=== PATIENT | female | born 1980 | race Hispanic/Latino ===

== ENCOUNTER 2018-08-03 14:30 | Emergency (ER) | payer OTHER ==
[~2018-08-03 14:30] MED LIST: DICLOFENAC SOD TP; FISH OIL/OMEGA 3 PO; HUM10VIA6 SQ; LOSA100T58 PO; METF-446 PO; NABU750T2 PO; SIMV40TA5 PO
[2018-08-03] MEDS ORDERED: IOHEXOL 350 MG/ML 100ML INFUS..BTL IV ONE (14:48)
[2018-08-03 15:04] LABS: BASOPHILS % (AUTO) 0.8 % (0.0-5.0); EOSINOPHILS % (AUTO) 2.1 % (0.0-8.0); HEMATOCRIT 40.4 % (36-48); LYMPHOCYTES % (AUTO) 36.6 % (21.0-51.0); MEAN CORPUSCULAR HEMOGLOBIN 30.9 pg (27.0-33.0); MEAN CORPUSCULAR HGB CONC 35.5 g/dL (32.0-36.0); MEAN CORPUSCULAR VOLUME 86.9 fL (79-99); MONOCYTES % (AUTO) 7.2 % (3.0-13.0); NEUTROPHILS % (AUTO) 53.3 % (40.0-77.0); PLATELET COUNT (AUTO) 269 K/uL (130-400); RED BLOOD CELL COUNT(AUTO) 4.65 MIL/uL (4.00-5.50); RED CELL DISTRIBUTION WIDTH 12.7 % (11.0-15.5); WHITE BLOOD COUNT (AUTO) 7.1 K/uL (4.8-10.8)
[2018-08-03 15:11] LABS: CREATININE 0.7 mg/dL (0.5-1.5); POTASSIUM 4.1 mmol/L (3.5-5.1)
[2018-08-03 15:12] LABS: INR 0.91 (0.85-1.15); PROTHROMBIN TIME 9.6 SEC (9.6-11.6)
[2018-08-03] MEDS ORDERED: ONDANSETRON HCL 4 MG/2 ML VIAL ONE (15:14)
[2018-08-03] MEDS ORDERED: MORPHINE SULFATE 4 MG/1ML SYG ONE (15:15)
[2018-08-03 15:22] LABS: ALBUMIN 3.5 g/dL (3.5-5.0); BILIRUBIN,TOTAL 0.2 mg/dL (0.2-1.0)
[2018-08-03] MEDS ORDERED: INSULIN HUMULIN R 100 UNIT/ML 3ML ONE (15:23)
[2018-08-03] MEDS ORDERED: MAGNESIUM HYDROXIDE 30 ML/UDCUP ONE (16:14)
[2018-08-03] MEDS ORDERED: LIDOCAINE HCL 2% VISCOUS 15 ML UDCUP ONE (16:14)
[2018-08-03 17:42] LABS: B-TYPE NATRIURETIC PEPTIDE < 5 pg/mL (0-100)
== END 2018-08-03 17:08 | disposition home or self-care (01) ==
LOC: EDH 14:30
DX: K21.9 Gastro-esophageal reflux disease without esophagitis (principal); E11.9 Type 2 diabetes mellitus without complications; R07.89 Other chest pain; I10 Essential (primary) hypertension; E78.5 Hyperlipidemia, unspecified; Z98.890 Other specified postprocedural states
CPT/HCPCS: 36415; 71045; 71275; 80053; 82550; 82948; 83874; 83880; 84484; 84702; 85025; 85610; 85730; 93005; 96374; 96375; 99285; J1815; J2270; J2405; Q9967

== ENCOUNTER → 2021-12-13 | Outpatient (CLI) | payer BC, OTHER ==
[~2021-12-13] MED LIST changes: +BISA5TAB12 PO; +DAPA5TAB PO; +DICL35CA3 PO; +DULO30CA52 PO; +FAMO20TA8 PO; +FINE20TA PO; +FOLI0.8T43 PO; +HYDR12.54 PO; +INSU300I SQ; +LORA10TA7 PO; +METO-391 PO; +MONT-39 PO; +MV-M1TAB20 PO; +NABU-143 PO; -NABU750T2 PO; +SEMA1PEN3 SQ; +SIMV-46 PO; -SIMV40TA5 PO; +TRAM-355 PO; +VITA100049 PO
== END | disposition home or self-care (01) ==
LOC: RAH 11:18
PROVIDERS: ATTEND Surgery
DX: E11.9 Type 2 diabetes mellitus without complications (principal); R12 Heartburn
CPT/HCPCS: 78264; A9541

== ENCOUNTER 2021-12-14 06:47 | Day surgery (SDC) | payer BC ==
[~2021-12-14 06:47] MED LIST changes: -BISA5TAB12 PO; -DAPA5TAB PO; -DICL35CA3 PO; -DICLOFENAC SOD TP; -DULO30CA52 PO; -FAMO20TA8 PO; -FINE20TA PO; -FISH OIL/OMEGA 3 PO; -FOLI0.8T43 PO; -HUM10VIA6 SQ; -HYDR12.54 PO; -INSU300I SQ; -LORA10TA7 PO; -METO-391 PO; -MONT-39 PO; -MV-M1TAB20 PO; -NABU-143 PO; -SEMA1PEN3 SQ; -TRAM-355 PO; -VITA100049 PO
[2021-12-14] MEDS ORDERED: 0.9%NACL 1000ML 1,000 ML IV ONE (07:13)
[2021-12-14 07:25] VITALS: BP 109/71
[2021-12-14] MEDS ORDERED: PROPOFOL 10 MG/ML 20ML VIAL IV ONE ×2 (07:56→08:05)
[2021-12-14] MEDS ORDERED: LIDOCAINE HCL-MPF 2% 5ML VIAL ONE (07:57)
[2021-12-14 08:15] VITALS: BP 95/52
[2021-12-14 08:20] VITALS: BP 96/64
[2021-12-14 08:25] VITALS: BP 110/74
[2021-12-14 08:30] VITALS: BP 121/83
[2021-12-14] MEDS ORDERED: FINE20TA PO (08:49)
[2021-12-14] MEDS ORDERED: MV-M1TAB20 PO (08:49)
[2021-12-14] MEDS ORDERED: HYDR12.54 PO (08:49)
[2021-12-14] MEDS ORDERED: LORA10TA7 PO (08:49)
[2021-12-14] MEDS ORDERED: DULO30CA52 PO (08:49)
[2021-12-14] MEDS ORDERED: DICL35CA3 PO (08:49)
[2021-12-14] MEDS ORDERED: METO-391 PO (08:49)
[2021-12-14] MEDS ORDERED: FAMO20TA8 PO (08:49)
[2021-12-14] MEDS ORDERED: VITA100049 PO (08:49)
[2021-12-14] MEDS ORDERED: SEMA1PEN3 SQ (08:49)
[2021-12-14] MEDS ORDERED: MONT-39 PO (08:49)
[2021-12-14] MEDS ORDERED: TRAM-355 PO (08:49)
[2021-12-14] MEDS ORDERED: DAPA5TAB PO (08:49)
[2021-12-14] MEDS ORDERED: INSU300I SQ (08:49)
[2021-12-14] MEDS ORDERED: BISA5TAB12 PO (08:49)
[2021-12-14] MEDS ORDERED: FOLI0.8T43 PO (08:49)
== END 2021-12-14 09:00 | disposition home or self-care (01) ==
LOC: DAH 06:47 → ENDO 06:47
PROVIDERS: ATTEND Surgery
DX: K21.9 Gastro-esophageal reflux disease without esophagitis (principal); K31.89 Other diseases of stomach and duodenum; K22.89 Other specified disease of esophagus; K29.70 Gastritis, unspecified, without bleeding; E11.43 Type 2 diabetes mellitus with diabetic autonomic (poly)neuropathy; K31.84 Gastroparesis; G47.30 Sleep apnea, unspecified; I10 Essential (primary) hypertension; E78.5 Hyperlipidemia, unspecified; E66.01 Morbid (severe) obesity due to excess calories; E78.00 Pure hypercholesterolemia, unspecified; K76.0 Fatty (change of) liver, not elsewhere classified; E78.2 Mixed hyperlipidemia; J45.20 Mild intermittent asthma, uncomplicated; M19.90 Unspecified osteoarthritis, unspecified site; Z80.0 Family history of malignant neoplasm of digestive organs; Z72.89 Other problems related to lifestyle; Z68.42 Body mass index [BMI] 45.0-49.9, adult; Z79.84 Long term (current) use of oral hypoglycemic drugs; Z79.899 Other long term (current) drug therapy; Z98.890 Other specified postprocedural states
CPT/HCPCS: 87426; 84703; 36415; 43239; 82948; J7030; J2704 ×2; J3490; A4620; A4215 ×2; A4223; A4222; A4221; A4663; A4606